=== PATIENT | male | born 1935 | race Caucasian/White ===

== ENCOUNTER → 2021-04-27 | Outpatient (CLI) | payer OTHER ==
[~2021-04-27] MED LIST: ALEVE220 MG PO; ASA81BEC PO; COLACE 100 MG100 MG PO; COMBIVENT RESPIM4 GM IH; COUMADIN 5 MG TA5 M1 PO; LEVAQUIN 500 M500 M2 PO; LISINOPRIL10 MG PO; LISINOPRIL20 MG PO; LOVENOX SQ; METFORMIN HCL500 MG PO; METFORMIN PO; NO MEDS; NORVASC5 MG PO; OXYCODONE HCL5 M1 PO; OXYCONTIN CR 1010 M1 PO; PREDNISONE 10 M10 MG PO; PROAIR HFA8.5 GM INH; SPIRIVA INH
== END ==
LOC: SJCVCIMAG 07:01
PROVIDERS: ATTEND Internal Medicine
DX: I08.3 Combined rheumatic disorders of mitral, aortic and tricuspid valves (principal); I49.3 Ventricular premature depolarization; I11.9 Hypertensive heart disease without heart failure; R06.00 Dyspnea, unspecified; I44.7 Left bundle-branch block, unspecified; E11.9 Type 2 diabetes mellitus without complications; R06.09 Other forms of dyspnea; J44.9 Chronic obstructive pulmonary disease, unspecified; Z79.84 Long term (current) use of oral hypoglycemic drugs; Z79.899 Other long term (current) drug therapy; Z87.891 Personal history of nicotine dependence; Z82.49 Family history of ischemic heart disease and other diseases of the circulatory system

== ENCOUNTER → 2021-04-30 | Outpatient (CLI) | payer OTHER ==
[~2021-04-30] VITALS: Ht 180.3 cm; Wt 119.3 kg
[2021-04-30 07:10] VITALS: BP 140/69
[2021-04-30 07:30] LABS: HEMATOCRIT 40.8 % (42.0-52.0); HEMOGLOBIN 13.1 gm/dL (14.0-18.0); MCH 28.8 pg (26.0-34.0); MCHC 32.1 g/dL (28.0-37.0); MCV 89.6 fL (80.0-100.0); RBC 4.55 mil/uL (4.50-6.00); WBC 7.5 thou/uL (4.0-11.0)
[2021-04-30 07:39] LABS: CALCIUM 9.6 mg/dL (8.5-10.1); CREATININE 1.8 mg/dL (0.7-1.3); POTASSIUM 5.4 mmol/L (3.5-5.1)
--- NOTE | 2021-04-30 10:40 | EKG ---
[place] [address] [facility] [place] [address] ELECTROCARDIOGRAM REPORT Name: XIMENA LLANES [id number] Admission: 04/30/21 Attend Phys: Brandon Montero Discharge: Date of : 35 Report #: [id number] [facility] Test Date: 2021-04-30 Test Time: 08:59:13 Pat Name: XIMENA LLANES Department: Room: Gender: Claims Adjustor: ODALYS : 1935 Requested By: Brandon Montero Order Number: [id number] MD: Tristan Lee Measurements Intervals [place] Rate: 65 P: DC: QRS: -49 QRSD: 154 T: 67 QT: 470 QTc: 489 Interpretive Statements Junctional rhythm Left bundle branch block Compared to ECG 01/11/2015 17:19:31 Junctional rhythm now present Left bundle-branch block now present Sinus rhythm no longer present Electronically Signed On 04-30-2021 10:40:02 CDT by Tristan Lee [email or web address] <ELECTRONICALLY SIGNED> By: Tristan Lee MD, [facility] 04/30/21 1040 [id number] [id number] Tristan Lee MD, FAC /EPI
--- NOTE | 2021-05-16 11:05 | CATHLAB ---
[facility] [place] [address] INVASIVE PROCEDURE REPORT Name: XIMENA LLANES Room #: [facility] Vasquez#: [id number] Admission: 04/30/21 Attend Phys: Brandon Montero Discharge: Date of : 35 Report #: [id number] REPORT FOR: cc: Micah Matos James A. DO Lammoglia, Francisco J. MD ~ ADDENDUM APPROVED REPORT Study performed: 04/30/2021 07:52:27 Patient Details Patient Status: Out-Patient Room #: The patient is a 85 year-old male Event Personnel Brandon Montero Surgical Assistant Certified, Scotty Spaulding RTR Monitor, Brenda Sánchez RTR, TOOTH POLISHER Scrub, Rain Lee RTR Scrub, Ruby Metzger RN RN, Briseyda Moeller RT(R)() Assistant Production Manager Procedures Performed Art Access - R femoral artery* Left Heart Cath w/or w/o Coronaries [id number] [facility] Hemostasis w/ Mynx 84403 Initial Mod Sed Same Phys/QHP Gr5y [id number] 32405 Mod Sed Same Phys/QHP Ea 208875, supervision of conscious sedation Indication Chest pain Procedure Narrative The Right Groin^ was infiltrated with 1% Lidocaine subcutaneous anesthesia. A PINNACLE 4FR Sheath #[id number] sheath was inserted into the RFA^. Coronary angiography was performed using coronary diagnostic catheters. The right coronary system was accessed and visualized with a 4FR JR4 catheter. The left coronary system was accessed and visualized with a 4FR JL5 catheter. The left ventricle was accessed and visualized with a 4FR PIGTAIL catheter. Left ventricular/Aortic Valve gradient assessed via catheter pullback. Closure device was deployed with a 6 Fr MYNXGRIP 6/7F #[id number]. Hemostasis was obtained with manual pressure following sheath removal without any complications. There was no hematoma. After injection of coronary arteries and hemodynamic pressures obtained, the 4Fr [place] sheath was exchanged for a 6Fr [place] sheath for closure. [facility] [address] [place] [address] INVASIVE PROCEDURE REPORT Name: XIMENA LLANES Room #: [facility] Pedro#: [id number] Admission: 04/30/21 Attend Phys: Brandon Ann Discharge: Date of : 35 Report #: [id number] Intraoperative Conscious Sedation Sedation start time: 936 Case end Time: 1015 Versed 2 mg Fluoro Time: 4.50 minutes Dose: DAP 8939.50 cGycm2 1316 mGy Contrast Type and Amount: Omnipaque 90 ml Diagnostic Cath Left Main Large-caliber vessel short length bifurcates left and descending left circumflex and is free of high-grade disease. LAD Moderate to large caliber type II vessel coursing in the anterior interventricular sulcus for early on gives rise to moderate caliber diagonal branches course on the anterolateral wall with only mild luminal irregularities. The LAD then continues on giving rise to septal and diagonal branches all of which are free of high-grade disease Diagonal 1 Moderate caliber vessel without significant stenotic lesions noted Diagonal 2 Small caliber vessel without significant high-grade lesions noted Circumflex Moderate caliber vessel that gives rise to early small caliber first marginal branch. Then continues on as a lateral marginal branch coursing towards the apex tortuous in its course but no high-grade lesion only mild plaquing is noted OM1 Small insignificant caliber vessel without significant disease noted OM2 Moderate caliber vessel without high-grade lesions present Right Coronary Large-caliber vessel normal origin courses in the AV groove posteriorly giving rise to small atrial and ventricular branches. And continues to the crux of the heart were gives rise to moderate caliber posterior descending artery which is free of high-grade disease. Then terminates as a small posterior wall branch R PDA Monitor large-caliber vessel coursing in the AV groove towards the apex free of high-grade disease but tortuous in its course Left Ventriculography Left Ventriculography was not performed. Hemodynamics The aortic pressure is 145/76 mmHg with a mean of 102 mmHg. The left ventricular pressure is 143/15 mmHg with a mean of mmHg. The left [facility] [address] [place] [address] INVASIVE PROCEDURE REPORT Name: XIMENA LLANES Room #: [facility] Vasquez#: [id number] Admission: 04/30/21 Attend Phys: Brandon Ann Discharge: Date of : 35 Report #: [id number] ventricular end diastolic pressure is 30 mmHg. Pullback from the left ventricle to the aorta revealed a mm gradient across the aortic valve. Conclusion 1. Essentially normal coronary arteries 2. Normal hemodynamic Recommendations Cardiac Risk Reduction Program Medical Therapy <ELECTRONICALLY SIGNED> By: Brandon Montero MD 05/16/21 1105 1105 1105 Brandon Montero MD /INF
== END | disposition home or self-care (01) ==
LOC: CATH 06:37
PROVIDERS: ATTEND Internal Medicine
DX: R07.9 Chest pain, unspecified (principal); R94.39 Abnormal result of other cardiovascular function study; I10 Essential (primary) hypertension; E11.9 Type 2 diabetes mellitus without complications; Z98.890 Other specified postprocedural states; Z79.899 Other long term (current) drug therapy; Z90.49 Acquired absence of other specified parts of digestive tract; Z96.653 Presence of artificial knee joint, bilateral; Z87.891 Personal history of nicotine dependence; Z88.0 Allergy status to penicillin

== ENCOUNTER → 2021-05-30 | Outpatient (CLI) | payer OTHER | LOC: SJCVC 09:38 | PROVIDERS: ATTEND Internal Medicine | DX: R94.31 Abnormal electrocardiogram [ECG] [EKG] (principal); I44.0 Atrioventricular block, first degree; I44.7 Left bundle-branch block, unspecified; R06.00 Dyspnea, unspecified; I10 Essential (primary) hypertension; E11.9 Type 2 diabetes mellitus without complications; J44.9 Chronic obstructive pulmonary disease, unspecified; Z88.0 Allergy status to penicillin; Z98.890 Other specified postprocedural states; Z79.84 Long term (current) use of oral hypoglycemic drugs; Z79.899 Other long term (current) drug therapy; Z87.891 Personal history of nicotine dependence; Z82.49 Family history of ischemic heart disease and other diseases of the circulatory system ==

== ENCOUNTER → 2021-10-16 | Outpatient (CLI) | payer OTHER | LOC: HYPER 10:16 | PROVIDERS: ATTEND Emergency Medicine | DX: R21 Rash and other nonspecific skin eruption (principal); E11.622 Type 2 diabetes mellitus with other skin ulcer; L98.492 Non-pressure chronic ulcer of skin of other sites with fat layer exposed; E11.22 Type 2 diabetes mellitus with diabetic chronic kidney disease; N18.30 Chronic kidney disease, stage 3 unspecified; C44.90 Unspecified malignant neoplasm of skin, unspecified; J44.9 Chronic obstructive pulmonary disease, unspecified; E66.9 Obesity, unspecified; Z79.899 Other long term (current) drug therapy; Z99.81 Dependence on supplemental oxygen; Z79.84 Long term (current) use of oral hypoglycemic drugs; Z68.34 Body mass index [BMI] 34.0-34.9, adult ==

== ENCOUNTER → 2022-01-02 | Outpatient (CLI) | payer OTHER | LOC: SJCVC 10:02 | PROVIDERS: ATTEND Internal Medicine | DX: R94.31 Abnormal electrocardiogram [ECG] [EKG] (principal); I44.7 Left bundle-branch block, unspecified; R06.00 Dyspnea, unspecified; R00.1 Bradycardia, unspecified; E11.9 Type 2 diabetes mellitus without complications; J44.9 Chronic obstructive pulmonary disease, unspecified; Z88.0 Allergy status to penicillin; Z79.899 Other long term (current) drug therapy; Z87.891 Personal history of nicotine dependence; Z72.89 Other problems related to lifestyle; Z13.220 Encounter for screening for lipoid disorders; Z95.818 Presence of other cardiac implants and grafts; Z82.49 Family history of ischemic heart disease and other diseases of the circulatory system ==